=== PATIENT | male | born 1955 | race African-American/Black ===

== ENCOUNTER 2019-03-25 20:45 | Emergency (ER) | payer MEDICAID ==
[~2019-03-25] VITALS: Ht 180.3 cm; Wt 100.0 kg
[2019-03-25 21:00] VITALS: BP 118/67
== END 2019-03-25 22:09 | disposition left against medical advice (07) ==
LOC: ER 20:45
DX: R05 Cough (principal); Z53.21 Procedure and treatment not carried out due to patient leaving prior to being seen by health care provider